=== PATIENT | female | born 2000 | race Caucasian/White ===

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

== ENCOUNTER 2020-01-28 15:52 | Emergency (ER) | payer SELFPAY ==
[2020-01-28 16:11] VITALS: BP 138/77; PULSE 78; RESP 16; TEMP 36.9; O2SAT 99
--- NOTE | 2020-01-28 16:23 | ED.GENADULT ---
HPI - General Adult General Chief complaint: Dental/Oral Stated complaint: Tooth pain Time Seen by Provider: 01/28/20 16:19 Source: patient and RN notes reviewed Mode of arrival: ambulatory Limitations: no limitations History of Present Illness HPI narrative: 19-year-old female presents with complaints of dental pain for the past day. Excedrin (last this morning approximately at 08:00) without relief. Denies any drainage. No fever or chills. No jaw swelling. No neck swelling. No limitation with speaking or swallowing. Has history of dental caries. No dental trauma. No oral lesions. Exacerbating factors consist of chewing on RT lower side, eating and drinking cold items. Relieving factors not eating on RT side and avoiding cold items. No dentures or bridges. Tolerating liquids well. Jyoti denies being , LMP 4 weeks ago. Denies headaches, weakness, fatigue, myalgia, or facial swelling. Denies chest pain or dyspnea. Denies cough, rhinorrhea, congestion, sore throat, nausea, vomiting, abdominal pain, and diarrhea. Denies recent traveling. Denies concern for COVID-19 or exposures been home since [id number] order except for essential household needs, working, and return home. Some parts of this dictation were generated by voice recognition software and may contain typographical and/or grammatical inaccuracies. Related Data Home Medications Medication Instructions Recorded Confirmed No Home Medications 01/28/20 01/28/20 Allergies Allergy/AdvReac Type Severity Reaction Status Date / Time No Known Allergies Allergy Verified 04/12/19 10:07 Review of Systems Review of Systems: Narrative: CONSTITUTIONAL: Denies fever, chills, sweats. EYES: Denies visual changes, redness, discharge. ENT: Denies rhinorrhea, congestion, sore throat, otalgia. Complains of RT lower dental pain. CARDIOVASCULAR: Denies chest pain, palpitations, edema. RESPIRATORY: Denies dyspnea, wheezing, cough. GASTROINTESTINAL: Denies abdominal pain, nausea, vomiting, diarrhea. GENITOURINARY: Denies dysuria, hematuria, abnormal discharge. SKIN: Denies rash or itching. MUSCULOSKELETAL: Denies acute back pain, joint pain, or myalgia. NEUROLOGIC: Denies numbness or focal weakness. PSYCHIATRIC: Denies anxiety or depression. All systems reviewed & are unremarkable except as noted in HPI and below. [facility] Past Medical History Medical History (Updated 01/29/20 @ 00:01 by Petar Martinez) Patient denies medical problems Surgical History Surgical History (Updated 01/28/20 @ 16:29 by CAMELIA Ragsdale) No significant past surgical history Family History Family History (Updated 01/28/20 @ 16:29 by CAMELIA Ragsdale) Father Alive and well Mother Alive and well Social History Social History (Updated 01/28/20 @ 16:30 by CAMELIA Ragsdale) Smoking status: Never smoker Second hand tobacco smoke exposure: Yes Alcohol intake: current Substance use: never Living arrangements: with family Occupation/Education: occupation Gender identity (if verbalized by the patient): Female Comments At time of signature, agree with nurse past medical, surgical, social, and family history. There is no relevant family history pertinent to the presenting complaint. Exam Narrative: Exam Narrative: GENERAL: This is a well-nourished, well-developed patient, in no apparent distress. Talks in full sentences ans ambulates with steady gait without dyspnea. HEAD: normocephalic, atraumatic. EYES: PERRL. Sclera clear/white. Vision is grossly intact. EARS: External ears normal, auditory canals clear and without drainage, TMs normal without perforation. Hearing grossly intact. NOSE: External nose normal with no obvious nasal discharge, nares without redness, no rhinorrhea. MOUTH: Tooth partially broken with hattie apical swelling, teeth #29 and #30 with tenderness on palpation. No jaw facial swelling, No trismus. Able to o
[2020-01-28] MEDS: KETOROLAC (*BKC) 60 MG/2 ML VIAL IM (16:36)
== END 2020-01-28 17:00 | disposition home or self-care (01) ==
PROVIDERS: Emergency Provider Nurse Practitioner Family; PCP Pediatrics
DX: K08.89 Other specified disorders of teeth and supporting structures (principal)
CPT/HCPCS: 99213; G0463; J1885